=== PATIENT | female | born 1960 | race Caucasian/White ===

== ENCOUNTER 2019-07-04 10:44 | Emergency (ER) | payer MEDICAID ==
[2019-07-04 11:28] LABS: CHLORIDE,CL 97 mmol/L (98-107); SODIUM,NA 136 mmol/L (136-145)
[2019-07-04] MEDS ORDERED: cefTRIAXone 1 GM in Sodium Chloride 0.9% 100 ML IV ONE (11:35)
[2019-07-04] MEDS ORDERED: Sodium Chloride 0.9% 10 ML Syringe FLUSH PRN (11:37)
--- NOTE | 2019-07-04 11:40 | EDM.PDOC ---
ED HPI GENERAL MEDICAL PROBLEM - General Chief Complaint: General Stated Complaint: Fever, Nausea, Kidney Pain Time Seen by Provider: 07/04/19 10:56 Source of Information: Reports: Patient History Limitations: Reports: No Limitations - History of Present Illness INITIAL COMMENTS - FREE TEXT/NARRATIVE: Patient comes in with history of increased urination and low grade temp that started yesterday. Temp was 101. No other obvious changes/symptoms of illness. Recently had stent placed in ureter due to scope related to hematuria. Urology requested that she come in to get screened for UTI given recent instrumentation. No HEENT changes/URI complaints. No new pain complaints/chest pain/back pain/abdominal pain/limb pain. No respiratory changes/cough/SOB No emesis/nausea/bowel changes. No neuro complaints/headache No other acute complaints. Did complete course of Cipro after having cystoscopy/stent placed. - Related Data Allergies Allergy/AdvReac Type Severity Reaction Status Date / Time No Known Allergies Allergy Verified 07/04/19 10:47 Home Meds: Home Meds Citalopram Hydrobromide [Celexa] 20 mg PO DAILY 07/04/19 [History] Lisdexamfetamine Dimesylate [Vyvanse] 30 mg PO DAILY 07/04/19 [History] Losartan [Cozaar] 50 mg PO DAILY 07/04/19 [History] Metoprolol Succinate [Toprol XL] 25 mg PO BEDTIME 07/04/19 [History] Nitrofurantoin Monohyd/M-Cryst [Macrobid 100 mg Capsule] 100 mg PO BID #8 capsule 07/04/19 [Rx] amLODIPine Besylate [Amlodipine Besylate] 10 mg PO BEDTIME 07/04/19 [History] hydroCHLOROthiazide [Hydrochlorothiazide] 25 mg PO DAILY 07/04/19 [History] Past Medical History Cardiovascular History: Reports: Hypertension Psychiatric History: Reports: Other (See Below) (ADHD/mood disorder) Social & Family History - Tobacco Use Smoking Status *Q: Never Smoker - Caffeine Use Caffeine Use: Reports: Coffee - Alcohol Use Alcohol Use History: Yes Alcohol Use Frequency: Socially - Recreational Drug Use Recreational Drug Use: No Drug Use in Last 12 Months: No ED ROS GENERAL - Review of Systems Review Of Systems: ROS reveals no pertinent complaints other than HPI. ED EXAM, GENERAL - Physical Exam Exam: See Below Exam Limited By: No Limitations General Appearance: Alert, WD/WN, No Apparent Distress Eye Exam: Bilateral Eye: EOMI, PERRL Ears: Normal External Exam Nose: No: Nasal Deformity, Nasal Swelling, Nasal Drainage Throat/Mouth: Normal Lips, Normal Voice, No Airway Compromise Head: Atraumatic, Normocephalic Neck: Normal Inspection, Supple, Non-Tender, Full Range of Motion Respiratory/Chest: No Respiratory Distress, Lungs Clear, Normal Breath Sounds, No Accessory Muscle Use, Chest Non-Tender Cardiovascular: Regular Rate, Rhythm, No Murmur GI/Abdominal: Normal Bowel Sounds, Soft, Non-Tender, No Distention (Female) Exam: Deferred Rectal (Female) Exam: Deferred Back Exam: Normal Inspection, Full Range of Motion. No: CVA Tenderness (L), CVA Tenderness (R), Muscle Spasm, Paraspinal Tenderness, Vertebral Tenderness Extremities: Normal Inspection, Normal Range of Motion, Non-Tender, Normal Capillary Refill Neurological: Alert, Oriented, Normal Cognition, Normal Gait, No Motor/Sensory Deficits Psychiatric: Normal Affect, Normal Mood Skin Exam: Warm, Dry, Intact, Normal Color Course - Vital Signs Last Recorded V/S: Last Vital Signs Temp 36.7 C 07/04/19 10:45 Pulse 81 07/04/19 10:45 Resp 16 07/04/19 10:45 BP 145/81 H 07/04/19 10:45 Pulse Ox 100 07/04/19 10:45 - Orders/Labs/Meds Labs: Laboratory Tests 07/04/19 07/04/19 07/04/19 Range/Units 10:54 11:10 11:10 WBC 8.5 (4.0-10.2) K/uL RBC 4.84 (3.77-5.09) M/uL Hgb 13.8 (11.7-15.5) g/dL Hct 40.8 (34.0-46.0) % MCV 84.3 (84.0-98.0) fL MCH 28.5 (28.2-33.3) pg MCHC 33.8 (31.7-36.0) g/dL RDW 13.4 (11.2-14.1) % Plt Count 344 (150-350) K/uL Neut % (Auto) 69.5 (45.0-80.0) % Lymph % (Auto) 23.0 (10.0-50.0) % [place] % (Auto) 6.2 (2.0-14.0) % Eos % (Auto) 1.1 (0.0-5.0) % Baso % (Auto) 0.2 (0.0-2.0) % Neut # (Auto) 5.88 (1.40-7.00) K/uL Lymph # (Auto) 1.94 (0.50-3.50) K/uL [place] # (Auto) 0.52 (0.00-1.00) K/uL Eos # (Auto) 0.09 (0.00-0.50) K/uL Baso # (Auto) 0.02 (0.00-0.20) K/uL Sodium 136 (136-145) mmol/L Potassium 3.6 (3.5-5.1) mmol/L Chloride 97 L (98-107) mmol/L Carbon Dioxide 26.8 (21.0-32.0) mmol/L BUN 16 (7-18) mg/dL Creatinine 0.55 (0.51-1.17) mg/dL Est Cr Clr Drug Dosing 91.10 mL/min Estimated GFR (MDRD) > 60 mL/min Glucose 107 H (74-106) mg/dL Calcium 9.7 (8.5-10.1) mg/dL Total Bilirubin 0.7 (0.2-1.0) mg/dL AST 24 (15-37) U/L ALT 49 (12-78) U/L Alkaline Phosphatase 70 (46-116) IU/L Total Protein 8.5 H (6.4-8.2) g/dL Albumin 4.1 (3.4-5.0) g/dL Specimen Type Urinblad Urine Color Yellow Urine Appearance Slightly cloudy Urine pH 6.0 (5.0-9.0) Ur Specific [place] 1.020 (1.005-1.030) Urine Protein 30 H (NEGATIVE) mg/dL Urine Glucose (UA) Negative (NEGATIVE) mg/dL Urine Ketones Negative (NEGATIVE) mg/dL Urine Occult Blood Moderate H (NEGATIVE) Urine Nitrite Negative (NEGATIVE) Urine Bilirubin Negative (NEGATIVE) Urine Urobilinogen 0.2 (0.2-1.0) E.U./dL Ur Leukocyte Esterase Moderate H (NEGATIVE) Urine RBC 10-20 H /HPF Urine WBC 40-50 H /HPF Ur Epithelial Cells Few /LPF Urine Bacteria Moderate H (NONE TO FEW) /HPF - Re-Assessments/Exams Free Text/Narrative Re-Assessment/Exam: 07/04/19 11:47 CBC/Chem unremarkable. UA showed elevated WBC/RBC. UC requested. Patient given IV Rocephin x1 dose and will be placed on Macrobid while UC results pending. Precautions reviewed. To follow up as needed if problems worsen/do not improve. Departure - Departure Time of Disposition: 12:30 Disposition: Home, Self-Care 01 Condition: Good Clinical Impression: UTI, Urinary tract infectious disease - Discharge Information *PRESCRIPTION DRUG MONITORING PROGRAM REVIEWED*: Not Applicable *COPY OF PRESCRIPTION DRUG MONITORING REPORT IN PATIENT NABIL: Not Applicable Prescriptions: Nitrofurantoin Monohyd/M-Cryst [Macrobid 100 mg Capsule] 100 mg PO BID #8 capsule Instructions: Urinary Tract Infection, Adult, [id number] Referrals: Ann Mcgill PA-C [Primary Care Provider] - Additional Instructions: Continue taking Macrobid one tab every 12 hours. Your culture results should be available within 3 days to verify that Macrobid was best choice to treat the infection. You may need to have the medication switched depending on the culture results.
[2019-07-04] MEDS: cefTRIAXone 1 GM Vial IM ONE (12:04)
[2019-07-04] MEDS: Nitrofurantoin Monohydrate/Macrocrystalline 100 MG Cap PO ONE (12:05)
== END 2019-07-04 12:15 | disposition home or self-care (01) ==
LOC: LL.ED 10:44
DX: N39.0 Urinary tract infection, site not specified (principal); I10 Essential (primary) hypertension; Z79.899 Other long term (current) drug therapy
CPT/HCPCS: 36415; 80053; 81001; 85025; 96372; 99283; A9270; J0696; 87086; 87088; 87186; J2001